=== PATIENT | female | born 1980 | race African-American/Black ===

== ENCOUNTER 2017-06-25 09:09 | Emergency (ER) | payer MEDICAID, OTHER ==
[2017-06-25] MEDS ORDERED: OXYCODONE-ACETAMINOPHEN 5-325 MG TABLET PO ONE (10:10)
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
[2017-06-25 12:09] VITALS: BP 152/95
== END 2017-06-25 12:07 | disposition home or self-care (01) ==
LOC: ER 09:09
DX: S16.1XXA Strain of muscle, fascia and tendon at neck level, initial encounter (principal); M25.512 Pain in left shoulder; M54.2 Cervicalgia; M54.89 Other dorsalgia; V48.5XXA Car driver injured in noncollision transport accident in traffic accident, initial encounter; I10 Essential (primary) hypertension
CPT/HCPCS: 99284; 72050; 73030; L0120

== ENCOUNTER 2019-06-16 12:39 | Emergency (ER) | payer MEDICAID, OTHER ==
[2019-06-16 14:09] VITALS: BP 166/103
[2019-06-16] MEDS ORDERED: DEXAMETHASONE SOD PHOS INJ 10 MG/1 ML VIAL IM ONE (14:22)
[2019-06-16] MEDS ORDERED: KETOROLAC TROMETHAMINE 60 MG/2 ML SDV IM ONE (14:22)
--- NOTE | 2019-06-16 14:27 | ER Document Report ---
HPI - HPI Time Seen by Provider: 06/16/19 14:14 Pain Level: 5 Notes: Patient is a 39-year-old female with a history of hypertension (has not taken her medicines recently) who presents complaining of sore throat and left-sided neck pain for the past couple days. She is able to eat and drink, but does have pain with swallowing. She is urinating normally and having normal bowel movements. No headache. Denies any fever, head injury, changes in vision/speech/mentation/hearing, URI, chest pain, palpitations, syncope, cough, shortness of breath, wheeze, dyspnea, abdominal pain, nausea/vomiting/diarrhea, urinary retention, dysuria, hematuria, or rash. - ROS Systems Reviewed and Negative: Yes All other systems reviewed and negative - EENT EENT: REPORTS: Sore Throat - REPRODUCTIVE Reproductive: DENIES: : Past Medical History - Social History Smoking Status: Never Smoker Frequency of alcohol use: None Drug Abuse: None Family History: CVA, DM, Hyperlipidemia, Hypertension, Malignancy Patient has suicidal ideation: No Patient has homicidal ideation: No - Past Medical History Cardiac Medical History: Reports: Hx Hypertension Neurological Medical History: Reports: Hx Migraine Renal/ Medical History: Reports: Hx Ovarian Cysts - pcos. Denies: Hx Peritone al Dialysis - Immunizations Immunizations up to date: Yes Hx Diphtheria, Pertussis, Tetanus Vaccination: Yes Vertical Provider Document - CONSTITUTIONAL Agree With Documented VS: Yes Notes: PHYSICAL EXAMINATION: GENERAL: Well-appearing, well-nourished and in no acute distress. A&Ox4. Answers questions appropriately. Moves comfortably w/o notable distress HEAD: Atraumatic, normocephalic. EYES: Pupils equal round and reactive to light, extraocular movements intact, sclera anicteric, conjunctiva are normal. ENT: Nares patent and with clear discharge. oropharynx mild erythema without exudates. 2+ tonsilar hypertrophy with mild erythema no exudate. No palatine shift. Uvula midline. No tongue protrusion. No drooling, hoarseness, or airway compromise. Moist mucous membranes. No sinus tenderness. NECK: Normal range of motion, supple without lymphadenopathy. No rigidity/meningismus. + tenderness left c-paraspinal mm to palp and left trapezius mm. LUNGS: Breath sounds clear to auscultation bilaterally and equal. No wheezes rales or rhonchi. No retractions HEART: Regular rate and rhythm without murmurs, rubs, gallops. NEUROLOGICAL: Normal speech, normal gait. Cranial nerves grossly intact. PSYCH: Normal mood, normal affect. SKIN: Warm, Dry, normal turgor, no rashes or lesions noted. - INFECTION CONTROL TRAVEL OUTSIDE OF THE [place] IN LAST 30 DAYS: No Course - Re-evaluation Re-evalutation: 06/16/19 Patient is an afebrile, well-hydrated, 39-year-old female who presents to the emergency department with acute pharyngitis, suspect viral. Vitals are acceptable without significant tachycardia, tachypnea, or hypoxia. PE is otherwise unremarkable. She is nontoxic-appearing and is tolerating p.o. w ithout difficulty. Lungs are clear to auscultation bilaterally. Rapid strep was negative with a throat culture pending. No further labs or imaging warranted at this time. Decadron/toradol given IM. Low suspicion for any meningitis, sepsis, peritonsillar/pharyngeal abscess, respiratory compromise, Bear's, or other emergent systemic condition at this time. Patient is aware this condition can change from initial presentation and she needs to monitor symptoms closely. Conservative measures otherwise for symptoms. Recheck with your PCM in 2-3 days. Return to the ED with any worsening/concerning symptoms otherwise as reviewed in discharge. Patient is in agreement. - Vital Signs Vital signs: Temp Pulse Resp BP Pulse Ox 98.3 F 100 20 166/103 H 97 06/16/19 13:03 06/16/19 14:08 06/16/19 14:08 06/16/19 14:08 06/16/19 14:08 Discharge - Discharge Clinical Impression: Sore throat, Neck pain on left side Condition: Stable Disposition: HOME, SELF-CARE Additional Instructions: Maintain adequate fluid intake Take meds as directed Salt water gargles, throat sprays, mouthwash rinse, peroxide gargles tylenol/ibuprofen as needed over the counter cold medication as needed for symptoms F/u: with your PCM in 2-3 days for a recheck Consider consult with ENT for ongoing/worsening symptoms Return to the ED with any fever, worsening pain, chest pain, neck pain/stiffness, shortness of breath, cough, drooling, trouble swallowing/breathing, abdominal pain, n/v/d, rash, or worsening/concerning symptoms otherwise. Prescriptions: Labetalol HCl [Normodyne 200 mg Tablet] 200 mg PO Q12 #30 tablet Forms: Elevated Blood Pressure Referrals: DAVID SARMIENTO FNP-C [Primary Care Provider] - Follow up as needed TERRELL MARIE DO [ASSOCIATE] - Follow up as needed
== END 2019-06-16 15:50 | disposition home or self-care (01) ==
LOC: ER 12:39
DX: J02.9 Acute pharyngitis, unspecified (principal); M54.2 Cervicalgia; I10 Essential (primary) hypertension
CPT/HCPCS: 99283; 96372; 87070; 87880; J1885; J1100